=== PATIENT | female | born 1945 | race Caucasian/White ===

== ENCOUNTER 2024-08-12 08:58 | Outpatient (REF) | payer MEDICARE, SELFPAY | END 2024-08-12 08:59 | disposition home or self-care (01) | LOC: HO.HOSX 08:58 | PROVIDERS: Visit Provider Orthopaedic Surgery | DX: M25.511 Pain in right shoulder (principal); M25.311 Other instability, right shoulder | CPT/HCPCS: 99202 ==

== ENCOUNTER 2024-08-12 10:15 | Outpatient (AMB) | payer MEDICARE, SELFPAY ==
--- NOTE | 2024-08-12 10:18 | A.OFFVIS_ITS ---
Vital Signs 08/12/24 10:27 Height 5 ft 6 in Weight 183 lb BMI 29.5 Handedness Right Intake Visit Reasons: Right shoulder pain and weakness Intake Note: Maria C is a 78 year old right hand dominant female who presents with complaints of progressively worsening right shoulder pain and weakness. The patient states that she fell onto her right arm on 06/29/2024. Since that time she has not been able to lift her right hand to shoulder height. She was seen by another orthopedic surgery group. She was told that she has a large rotator cuff tear and would likely need reverse total shoulder replacement surgery. She has tried [id number] exercises which gave her minimal relief. She has also tried Tylenol and anti-inflammatory medicines which gave her minimal relief. Allergies hydromorphone [From Dilaudid] Allergy (Verified 08/12/24 10:29) Hives morphine Allergy (Verified 08/12/24 10:29) Hives Sulfa (Sulfonamide Antibiotics) Allergy (Verified 08/12/24 10:29) Hives Medication List - Last Reconciled 08/12/24 by Óscar Matamoros MD amlodipine 2.5 mg PO DAILY amoxicillin 250 mg PO BID bisoprolol fumarate 2.5 mg PO DAILY gabapentin 300 mg PO BID isosorbide mononitrate ER 120 mg PO DAILY losartan 25 mg PO DAILY meloxicam 15 mg PO DAILY nitroglycerin 0.3 mg sublingual Q5M PRN rosuvastatin 20 mg PO DAILY [facility] Social History Alcohol intake: never Patient Tobacco Use Status: Never used Tobacco Current occupational status: retired Current occupation: right hand dominant Physical Exam Vital Signs: BMI result Body Mass Index 29.5 Const Other: Well-nourished well-developed very friendly female awake alert and oriented x3 in no acute distress Extrem Other: Bilateral upper extremity examination shows good capillary refill, no skin lesions noted, normal sensation light touch Right shoulder examination shows limited active range of motion but full passive range of motion when compared to her left shoulder, 2/5 strength with supraspinatus testing, positive impingement signs, tenderness over her acro mioclavicular joint, no instability Results Reviewed Results Reviewed: MRI of the patient's right shoulder show severe acromioclavicular joint narrowing, a type 2 acromion, a large rotator cuff tear involving the supraspinatus and infraspinatus tendons Assessment & Plan Assessment & Plan (1) Rotator cuff insufficiency of right shoulder: Code(s): M25.311 - Other instability, right shoulder Category: Medical Plan Mrs. Sagastume presents with right shoulder pain and weakness due to impingement syndrome, acromioclavicular joint arthritis and a large rotator cuff tear. I had a lengthy discussion with the patient regarding the treatment options. The risks and benefits of right shoulder surgery were discussed at length with the patient. The patient is considering undergoing right shoulder surgery later this year. Surgery will most likely involve right shoulder diagnostic arthroscopy with distal clavicle excision, acromioplasty and rotator cuff repair. The patient does understand that based on the size of the tear her rotator cuff might not be reparable at this time. The patient will continue with her gentle [id number] exercises in the meantime. Feel free to call me at any time should questions regarding her orthopedic management arise. I spent 20 minutes in reviewing the patient's records and imaging studies, kaitlin hanks the patient and documenting in the medical record. Orders: Orders XR shoulder RT min 2V Today M25.511 - Pain in right shoulder Coding Level of Care Code New Pt Level 3 (08167) Complex EM visit Add On G2211 Diagnoses Rotator cuff insufficiency of right shoulder M25.311
[2024-08-12 10:27] VITALS: BMI 29.5
--- OUTSIDE RECORDS SUMMARY | 2024-08-12 12:02 | XMS_ITS ---
Author Name [facility] Organization Unknown Care Team Organization Name Specialty Phone Email Start Date End Daron bah [facility], [facility], Primary Care 02/02/2021 12/30/2023
== END 2024-08-12 11:00 | disposition home or self-care (01) ==
LOC: HO.HOS 10:16
PROVIDERS: Visit Provider Orthopaedic Surgery
DX: M25.311 Other instability, right shoulder (principal); M75.41 Impingement syndrome of right shoulder; M19.041 Primary osteoarthritis, right hand
CPT/HCPCS: 99203; G2211